=== PATIENT | female | born 1995 | race Caucasian/White ===

== ENCOUNTER 2017-12-18 17:06 | Inpatient (IN) | payer MEDICAID ==
[2017-12-18] MEDS ORDERED: GLUCAGON 1 MG INJ IM (20:00)
[2017-12-18] MEDS ORDERED: GLUCOSE GEL 15 GRAM TUBE BUCCAL (20:00)
[2017-12-18] MEDS ORDERED: GLUCOSE GEL 15 GRAM TUBE PO ×2 (20:00)
[2017-12-18] MEDS ORDERED: DEXTROSE 50% 50 ML SYRINGE IV ×2 (20:00)
[2017-12-18] MEDS: BETAMET NA PHOS/AC(6 MG/ML) 5ML INJ IM (21:00)
[2017-12-18] MEDS: LACTATED RINGER'S 1,000 ML IV (22:09)
[2017-12-18] MEDS: INSULIN ASPART [NOVOLOG] 3 ML PEN SC (22:35)
[2017-12-18] MEDS: ACCU-CHEK XX (22:35)
[2017-12-18] MEDS: URSODIOL 300 MG CAP PO (23:22)
[2017-12-19] MEDS: LACTATED RINGER'S 1,000 ML IV ×2 (02:30→05:12)
[2017-12-19] MEDS: ACCU-CHEK XX ×4 (07:30→20:07)
[2017-12-19 08:23] LABS: WHITE BLOOD COUNT 9.4 10^3/ul (4.8-10.8)
[2017-12-19 08:23] LABS: ADD MAN DIFF? NO; BASOPHILS % 0.1 % (0.0-2.0); HEMOGLOBIN 13.1 g/dl (12.0-16.0); LYMPHOCYTES # 0.8 10^3/ul (0.8-2.9); LYMPHOCYTES % 8.1 % (15.0-51.0); MEAN CORPUSCULAR HEMOGLOBIN 29.5 pg (29.0-33.0); MEAN CORPUSCULAR HGB CONC 33.6 g/dl (32.0-37.0); MEAN CORPUSCULAR VOLUME 87.8 fl (82.0-101.0); MEAN PLATELET VOLUME 10.1 fl (7.4-10.4); MONOCYTE # 0.2 10^3/ul (0.3-0.9); MONOCYTES % 1.6 % (0.0-11.0); NEUTROPHIL # 8.4 10^3/ul (1.6-7.5); NEUTROPHILS % 89.8 % (39.0-77.0); PLATELET COUNT 319 10^3/UL (140-415); RED BLOOD COUNT 4.44 10^6/ul (4.20-5.40); RED CELL DISTRIBUTION WIDTH 13.1 % (11.5-14.5)
[2017-12-19 08:45] LABS: ALANINE AMINOTRANSFERASE 444 IU/L (13-69); ALBUMIN 3.5 g/dl (3.3-4.9); ALBUMIN/GLOBULIN RATIO 1.12; ALKALINE PHOSPHATASE 221 IU/L (42-121); ANION GAP 14 (8-16); ASPARTATE AMINO TRANSFERASE 210 IU/L (15-46); BILIRUBIN,INDIRECT 0.5 mg/dl (0-1.1); BILIRUBIN,TOTAL 0.5 mg/dl (0.2-1.3); BLOOD UREA NITROGEN 5 mg/dl (7-20); CALCIUM 9.8 mg/dl (8.4-10.2); CARBON DIOXIDE 20 mmol/L (21-31); CHLORIDE 107 mmol/L (97-110); CREATININE 0.35 mg/dl (0.44-1.00); GLUCOSE 115 mg/dl (70-220); POTASSIUM 4.1 mmol/L (3.5-5.1); SODIUM 137 mmol/L (135-144); TOTAL PROTEIN 6.6 g/dl (6.1-8.1)
[2017-12-19] MEDS ORDERED: URSODIOL 300 MG CAP PO (09:00)
[2017-12-19] MEDS: INSULIN ASPART [NOVOLOG] 3 ML PEN SC ×3 (10:05→20:05)
[2017-12-19] MEDS: URSODIOL 300 MG CAP PO ×3 (10:46→22:20)
[2017-12-19 17:09] LABS: COLLECTION PERIOD 24 hrs
[2017-12-19 17:24] LABS: CREATININE,URINE RANDOM 58.01 mg/dl (20-320)
[2017-12-19 17:31] LABS: COLLECTION PERIOD 24 hrs; VOLUME 3600 ml/24hrs
[2017-12-19 17:32] LABS: VOLUME 3600 mls
[2017-12-19 17:34] LABS: CREATININE CLEARANCE 414.4 mls/min (84.0-162.0); SCRET 0.35 mg/dl (0.44-1.00)
[2017-12-19] MEDS: BETAMET NA PHOS/AC(6 MG/ML) 5ML INJ IM (21:01)
[2017-12-20 07:03] LABS: ADD MAN DIFF? NO
[2017-12-20 07:11] LABS: WHITE BLOOD COUNT 8.7 10^3/ul (4.8-10.8)
[2017-12-20 07:11] LABS: BASOPHILS % 0.1 % (0.0-2.0); HEMOGLOBIN 11.9 g/dl (12.0-16.0); LYMPHOCYTES # 0.8 10^3/ul (0.8-2.9); LYMPHOCYTES % 8.7 % (15.0-51.0); MEAN CORPUSCULAR HEMOGLOBIN 29.2 pg (29.0-33.0); MEAN CORPUSCULAR HGB CONC 33.1 g/dl (32.0-37.0); MEAN CORPUSCULAR VOLUME 88.2 fl (82.0-101.0); MEAN PLATELET VOLUME 10.5 fl (7.4-10.4); MONOCYTE # 0.2 10^3/ul (0.3-0.9); MONOCYTES % 2.3 % (0.0-11.0); NEUTROPHIL # 7.7 10^3/ul (1.6-7.5); NEUTROPHILS % 88.3 % (39.0-77.0); PLATELET COUNT 313 10^3/UL (140-415); RED BLOOD COUNT 4.08 10^6/ul (4.20-5.40); RED CELL DISTRIBUTION WIDTH 13.2 % (11.5-14.5)
[2017-12-20 07:26] LABS: ALANINE AMINOTRANSFERASE 627 IU/L (13-69); ALBUMIN 3.6 g/dl (3.3-4.9); ALBUMIN/GLOBULIN RATIO 1.02; ALKALINE PHOSPHATASE 192 IU/L (42-121); ANION GAP 12 (8-16); ASPARTATE AMINO TRANSFERASE 288 IU/L (15-46); BILIRUBIN,INDIRECT 0.4 mg/dl (0-1.1); BILIRUBIN,TOTAL 0.4 mg/dl (0.2-1.3); BLOOD UREA NITROGEN 7 mg/dl (7-20); CALCIUM 9.3 mg/dl (8.4-10.2); CARBON DIOXIDE 21 mmol/L (21-31); CHLORIDE 109 mmol/L (97-110); CREATININE 0.38 mg/dl (0.44-1.00); GLUCOSE 143 mg/dl (70-220); POTASSIUM 3.8 mmol/L (3.5-5.1); SODIUM 138 mmol/L (135-144); TOTAL PROTEIN 7.1 g/dl (6.1-8.1)
[2017-12-20] MEDS: ACCU-CHEK XX ×5 (07:30→21:10)
[2017-12-20] MEDS: URSODIOL 300 MG CAP PO ×3 (09:11→22:54)
[2017-12-20] MEDS: INSULIN ASPART [NOVOLOG] 3 ML PEN SC ×4 (10:05→21:10)
[2017-12-21 07:51] LABS: HEMOGLOBIN A1C 5.5 % (0-5.9)
[2017-12-21 07:58] LABS: ALANINE AMINOTRANSFERASE 647 IU/L (13-69); ALBUMIN 3.5 g/dl (3.3-4.9); ALKALINE PHOSPHATASE 171 IU/L (42-121); ASPARTATE AMINO TRANSFERASE 222 IU/L (15-46); BILIRUBIN,INDIRECT 0.3 mg/dl (0-1.1); BILIRUBIN,TOTAL 0.3 mg/dl (0.2-1.3)
[2017-12-21] MEDS: URSODIOL 300 MG CAP PO ×3 (08:58→21:09)
[2017-12-21] MEDS: ACCU-CHEK XX ×3 (10:50→20:07)
[2017-12-21] MEDS: INSULIN ASPART [NOVOLOG] 3 ML PEN SC ×2 (14:40→20:05)
[2017-12-24 12:01] LABS: CHENODEOXYCHOLIC ACID 2.2 umol/L (< OR = 3.1); CHOLIC ACID 4.2 umol/L (< OR = 1.8); DEOXYCHOLIC ACID <0.5 umol/L (< OR = 2.4); TOTAL BILE ACIDS 6.4 umol/L (< OR = 6.8)
== END 2017-12-21 22:35 | disposition home or self-care (01) | DRG 781 ==
LOC: OBT 17:06 → PP1 12-19 02:24 → L-D 17:07 → OBT 18:15 → L-D 18:15
PROVIDERS: Obstetrics & Gynecology
DX: O26.613 Liver and biliary tract disorders in pregnancy, third trimester (principal); K83.1 Obstruction of bile duct; O24.410 Gestational diabetes mellitus in pregnancy, diet controlled; O35.8XX0 Maternal care for other (suspected) fetal abnormality and damage, not applicable or unspecified; Z3A.29 29 weeks gestation of pregnancy
CPT/HCPCS: 76705; 76818; 80053; 80076; 82575; 82962; 83036; 83789; 84156; 84560; 85025

== ENCOUNTER 2017-12-24 16:35 | Outpatient (CLI) | payer MEDICAID | END 2017-12-24 21:07 | disposition home or self-care (01) | LOC: OBT 16:35 → L-D 16:36 → OBT 21:07 | DX: O99.613 Diseases of the digestive system complicating pregnancy, third trimester (principal); K80.20 Calculus of gallbladder without cholecystitis without obstruction; O24.419 Gestational diabetes mellitus in pregnancy, unspecified control; Z3A.30 30 weeks gestation of pregnancy | CPT/HCPCS: 76818 ==

== ENCOUNTER 2018-02-13 18:43 | Inpatient (IN) | payer MEDICAID ==
[2018-02-13] MEDS ORDERED: LACTATED RINGER'S 1,000 ML IV (19:43)
[2018-02-13] MEDS ORDERED: MISOPROSTOL 200 MCG TAB PR (20:00)
[2018-02-13] MEDS ORDERED: LIDOCAINE 1% (MPF) 30 ML INJ INJ (20:00)
[2018-02-13] MEDS ORDERED: OXYTOCIN 30 UNITS/LR 500 ML IV (20:00)
[2018-02-13] MEDS ORDERED: IBUPROFEN 600 MG TAB PO (20:00)
[2018-02-13] MEDS ORDERED: METHYLERGONOVINE 0.2 MG INJ IM (20:00)
[2018-02-13] MEDS ORDERED: CARBOPROST 250 MCG INJ IM (20:00)
[2018-02-13 20:06] LABS: ADD MAN DIFF? NO
[2018-02-13 20:13] LABS: WHITE BLOOD COUNT 8.5 10^3/ul (4.8-10.8)
[2018-02-13 20:13] LABS: BASOPHILS % 0.2 % (0.0-2.0); EOSINOPHILS % 0.2 % (0.0-7.0); HEMATOCRIT 39.9 % (37.0-47.0); HEMOGLOBIN 13.9 g/dl (12.0-16.0); LYMPHOCYTES # 1.2 10^3/ul (0.8-2.9); MEAN CORPUSCULAR HGB CONC 34.8 g/dl (32.0-37.0); MEAN CORPUSCULAR VOLUME 86.2 fl (82.0-101.0); MEAN PLATELET VOLUME 10.1 fl (7.4-10.4); MONOCYTE # 0.3 10^3/ul (0.3-0.9); NEUTROPHIL # 6.9 10^3/ul (1.6-7.5); NEUTROPHILS % 81.2 % (39.0-77.0); PLATELET COUNT 301 10^3/UL (140-415); RED BLOOD COUNT 4.63 10^6/ul (4.20-5.40); RED CELL DISTRIBUTION WIDTH 13.5 % (11.5-14.5)
[2018-02-13] MEDS: LACTATED RINGER'S 1,000 ML IV* (20:14)
[2018-02-13] MEDS: AMPICILLIN 2 GM/NS (PMX) 100 ML IV (20:29)
[2018-02-13 20:31] LABS: INR 0.85; PROTIME 11.7 Sec (11.9-14.9); PT RATIO 0.9
[2018-02-13 20:32] LABS: PARTIAL THROMBOPLASTIN TIME 31.4 Sec (25.0-35.0)
[2018-02-13 20:34] LABS: GLUCOSE 90 mg/dl (70-220)
[2018-02-13] MEDS ORDERED: DEXTROSE 5%-LR 1,000 ML IV (21:00)
[2018-02-13] MEDS ORDERED: HYDROCODONE/APAP (5/325) TAB PO (23:00)
[2018-02-14] MEDS: AMPICILLIN 1 GM/NS (PMX) 50 ML IV ×3 (00:19→08:38)
[2018-02-14] MEDS: OXYTOCIN 30 UNITS/LR 500 ML IV ×3 (04:22→11:32)
[2018-02-14] MEDS: LACTATED RINGER'S 1,000 ML IV* ×3 (06:04→18:10)
[2018-02-14] MEDS: BUTORPHANOL 2 MG INJ IV (10:31)
[2018-02-14] MEDS ORDERED: DEXTROSE 5%-LR 1,000 ML IV (13:18)
[2018-02-14] MEDS ORDERED: OXYTOCIN 30 UNITS/LR 500 ML IV (13:30)
[2018-02-14] MEDS ORDERED: ZOLPIDEM 5 MG TAB PO (13:30)
[2018-02-14] MEDS ORDERED: ACETAMINOPHEN 325 MG TAB PO (13:30)
[2018-02-14] MEDS ORDERED: OXYCODONE/ASPIRIN (4.88/325) TAB PO (13:30)
[2018-02-14] MEDS ORDERED: CARBOPROST 250 MCG INJ IM (13:30)
[2018-02-14] MEDS ORDERED: DIBUCAINE 1% 30 GM OINT PR (13:30)
[2018-02-14] MEDS ORDERED: METHYLERGONOVINE 0.2 MG INJ IM (13:30)
[2018-02-14] MEDS ORDERED: DIPHENHYDRAMINE 50 MG INJ IV (13:30)
[2018-02-14] MEDS ORDERED: MISOPROSTOL 200 MCG TAB PR (13:30)
[2018-02-14] MEDS ORDERED: ONDANSETRON 4 MG INJ IV (13:30)
[2018-02-14] MEDS: IBUPROFEN 600 MG TAB PO (18:00)
[2018-02-14] MEDS: WITCH HAZEL/GLYCERIN PAD PR (18:09)
[2018-02-14] MEDS: LANOLIN 7 GM TUBE TOP (18:10)
[2018-02-14] MEDS: BENZOCAINE 20% 56 ML SPRAY TOP (18:10)
[2018-02-14 21:47] LABS: RAPID PLASMA REAGIN NONREACTIVE (NR)
[2018-02-15] MEDS: IBUPROFEN 600 MG TAB PO ×5 (00:07→23:49)
[2018-02-15] MEDS: LACTATED RINGER'S 1,000 ML IV* (05:18)
[2018-02-15 09:21] LABS: ADD MAN DIFF? NO
[2018-02-15 09:27] LABS: WHITE BLOOD COUNT 6.6 10^3/ul (4.8-10.8)
[2018-02-15 09:27] LABS: BASOPHILS % 0.3 % (0.0-2.0); EOSINOPHILS # 0.1 10^3/ul (0.0-0.5); EOSINOPHILS % 1.4 % (0.0-7.0); HEMATOCRIT 36.5 % (37.0-47.0); HEMOGLOBIN 12.5 g/dl (12.0-16.0); LYMPHOCYTES # 1.4 10^3/ul (0.8-2.9); LYMPHOCYTES % 21.4 % (15.0-51.0); MEAN CORPUSCULAR HGB CONC 34.2 g/dl (32.0-37.0); MEAN CORPUSCULAR VOLUME 87.7 fl (82.0-101.0); MEAN PLATELET VOLUME 10.2 fl (7.4-10.4); MONOCYTE # 0.4 10^3/ul (0.3-0.9); MONOCYTES % 5.7 % (0.0-11.0); NEUTROPHIL # 4.7 10^3/ul (1.6-7.5); NEUTROPHILS % 70.7 % (39.0-77.0); PLATELET COUNT 246 10^3/UL (140-415); RED BLOOD COUNT 4.16 10^6/ul (4.20-5.40); RED CELL DISTRIBUTION WIDTH 13.9 % (11.5-14.5)
[2018-02-16] MEDS: IBUPROFEN 600 MG TAB PO ×2 (06:08→11:29)
[2018-02-16] MEDS ORDERED: MEASLES,MUMPS,RUBELLA VACCINE INJ SC* (09:00)
[2018-02-16] MEDS: SENNA/DOCUSATE NA (8.6MG/50MG) TAB PO (09:12)
[2018-02-16] MEDS: DIPHTH/TET/ACEL PERTUSS (ADULT) 0.5 ML VIAL IM* (11:29)
== END 2018-02-16 13:30 | disposition home or self-care (01) | DRG 775 ==
LOC: OBT 18:43 → PP1 02-14 13:38 → L-D 18:44 → OBT 18:44 → L-D 18:51
PROVIDERS: Obstetrics & Gynecology
PROC: 10E0XZZ Delivery of Products of Conception, External Approach (ICD-10-PCS; principal; 2018-02-14)
PROC: 3E033VJ Introduction of Other Hormone into Peripheral Vein, Percutaneous Approach (ICD-10-PCS; 2018-02-14)
DX: O24.429 Gestational diabetes mellitus in childbirth, unspecified control (principal); K83.1 Obstruction of bile duct; O26.62 Liver and biliary tract disorders in childbirth; O69.81X0 Labor and delivery complicated by cord around neck, without compression, not applicable or unspecified; Z3A.37 37 weeks gestation of pregnancy; Z37.0 Single live birth
CPT/HCPCS: 82947; 82962; 85025; 85610; 85730; 86592; 86850; 86900; 86901; 90715; 99464